=== PATIENT | female | born 1980 | race African-American/Black ===

== ENCOUNTER 2020-08-24 13:19 | Outpatient (CLI) | payer MEDICARE, MEDICAID | END 2020-08-24 23:59 | disposition home or self-care (01) | LOC: MSC 13:19 | PROVIDERS: ATTEND Internal Medicine | DX: M54.5 Low back pain (principal); Z94.0 Kidney transplant status; F51.02 Adjustment insomnia; E83.52 Hypercalcemia; S25.3 Injury of innominate or subclavian vein; K21.9 Gastro-esophageal reflux disease without esophagitis; N25.81 Secondary hyperparathyroidism of renal origin; S25.20XA Unspecified injury of superior vena cava, initial encounter; I95.9 Hypotension, unspecified; M81.0 Age-related osteoporosis without current pathological fracture; E03.9 Hypothyroidism, unspecified; R53.81 Other malaise; Z79.1 Long term (current) use of non-steroidal anti-inflammatories (NSAID); Z79.890 Hormone replacement therapy; Z79.891 Long term (current) use of opiate analgesic; Z79.51 Long term (current) use of inhaled steroids; Z79.899 Other long term (current) drug therapy ==